=== PATIENT | female | born 1965 | race Caucasian/White ===

== ENCOUNTER → 2023-04-22 12:39 | Outpatient (REF) | payer BC, SELFPAY ==
[2023-04-22 12:45] VITALS: BP 126/91; BP_SYST 87
[2023-04-22 14:30] VITALS: BP_SYST 200
== END ==
LOC: RADI 12:39
PROVIDERS: ATTENDING PHYSICIAN Specialist; FAMILY PHYSICIAN Family Medicine
DX: L76.34 Postprocedural seroma of skin and subcutaneous tissue following other procedure (principal); Y83.8 Other surgical procedures as the cause of abnormal reaction of the patient, or of later complication, without mention of misadventure at the time of the procedure
CPT/HCPCS: 10030; 87015; 87070; 87205; C1729; C1769

== ENCOUNTER → 2023-04-30 11:43 | Outpatient (REF) | payer BC, SELFPAY ==
[2023-04-30 12:07] VITALS: BP 130/91; BP_SYST 74
== END ==
LOC: RADI 11:43
PROVIDERS: ATTENDING PHYSICIAN Specialist
DX: Z46.82 Encounter for fitting and adjustment of non-vascular catheter (principal); K91.872 Postprocedural seroma of a digestive system organ or structure following a digestive system procedure; Y83.8 Other surgical procedures as the cause of abnormal reaction of the patient, or of later complication, without mention of misadventure at the time of the procedure
CPT/HCPCS: 76705

== ENCOUNTER → 2023-10-23 14:41 | Outpatient (REF) | payer BC, SELFPAY | LOC: HWWDC 14:41 | PROVIDERS: ATTENDING PHYSICIAN Obstetrics & Gynecology; FAMILY PHYSICIAN Family Medicine | DX: Z12.31 Encounter for screening mammogram for malignant neoplasm of breast (principal) | CPT/HCPCS: 77063; 77067 ==

== ENCOUNTER → 2024-01-07 12:54 | Outpatient (REF) | payer BC, SELFPAY | LOC: HWRAD 12:54 | PROVIDERS: ATTENDING PHYSICIAN Urology; FAMILY PHYSICIAN Physician Assistant Medical | DX: N39.0 Urinary tract infection, site not specified (principal); M62.89 Other specified disorders of muscle | CPT/HCPCS: 76770; 76856 ==

== ENCOUNTER → 2024-12-04 12:59 | Outpatient (REF) | payer BC, SELFPAY | LOC: HWRAD 12:59 | PROVIDERS: ATTENDING PHYSICIAN Urology; FAMILY PHYSICIAN Family Medicine | DX: R93.5 Abnormal findings on diagnostic imaging of other abdominal regions, including retroperitoneum (principal); N13.30 Unspecified hydronephrosis | CPT/HCPCS: 74176 ==

== ENCOUNTER → 2025-01-22 13:25 | Outpatient (REF) | payer BC, SELFPAY | LOC: HWRAD 13:25 | PROVIDERS: ATTENDING PHYSICIAN Obstetrics & Gynecology; FAMILY PHYSICIAN Family Medicine | DX: D21.9 Benign neoplasm of connective and other soft tissue, unspecified (principal) | CPT/HCPCS: 76830; 76856 ==